=== PATIENT | female | born 1975 | race Caucasian/White ===

== ENCOUNTER 2019-05-27 05:10 | Inpatient (IN) | payer MEDICAID ==
[~2019-05-27] VITALS: Ht 165.1 cm; Wt 62.3 kg
[2019-05-27] MEDS ORDERED: LORA-268 PO (05:39)
[2019-05-27] MEDS ORDERED: mag hydrox/Alum hydrox/simeth 30ml oral suspension PO PRN (05:40)
[2019-05-27] MEDS ORDERED: morphine 2 MG/ML inj. syringe IV PRN (05:40)
[2019-05-27] MEDS ORDERED: magnesium 2GM in 50ml NS 50 ML IV PRN (05:40)
[2019-05-27] MEDS ORDERED: magnesium 4gm in 100ml NS 100 ML IV PRN ×2 (05:40→10:20)
[2019-05-27] MEDS ORDERED: potassium Cl 20 mEq SR tablet PO PRN (05:40)
[2019-05-27] MEDS ORDERED: potassium CL 10mEq/100ml bag 100 ML IV PRN (05:40)
[2019-05-27] MEDS ORDERED: HYDR-4353 PO (05:40)
[2019-05-27] MEDS ORDERED: PRED5TAB PO (05:40)
[2019-05-27] MEDS ORDERED: ondansetron/PF 4mg/2ml inj IV PRN (05:40)
[2019-05-27] MEDS ORDERED: HYDROcodone/acetaminophen 5mg/325mg tablet PO PRN (05:40)
[2019-05-27] MEDS ORDERED: magnesium hydroxide 30ml (MOM) UD suspension PO PRN (05:40)
[2019-05-27] MEDS ORDERED: magnesium Cl slow-release 64mg tablet PO PRN (05:40)
[2019-05-27] MEDS ORDERED: acetaminophen 325mg tablet PO PRN (05:40)
[2019-05-27] MEDS: normal saline 1000ml 1,000 ML IV SCH ×2 (05:53→15:11)
[2019-05-27] MEDS: morphine 2 MG/ML inj. syringe IV PRN ×2 (06:02→10:16)
--- NOTE | 2019-05-27 06:23 | NUR ---
patient received awake,NS 100ml running,call light within reach.
[2019-05-27] MEDS: K and/or MAG REPLACEMENT MC SCH (08:00)
--- NOTE | 2019-05-27 08:00 | NUR ---
0800 zosyn not in om[facility] frig. messaged pharmacy and they brought it up. hung abx
[2019-05-27] MEDS: prednisone 10mg tablet PO SCH (08:03)
[2019-05-27] MEDS: pantoprazole 40mg Tablet.DR PO SCH (08:03)
[2019-05-27] MEDS: piperacillin/tazo 3.375gm/50ml 50 ML IV SCH ×3 (08:06→23:59)
--- NOTE | 2019-05-27 08:20 | NUR ---
SPOKE WITH PT, ASKING PERMISSION TO SPEAK WITH HER PARENTS. WILL CALL PARENTS
[2019-05-27 08:30] VITALS: BP 100/60
[2019-05-27 09:35] LABS: EOSINOPHILS # (AUTO) 0.1 X10'3 (0-0.9); MEAN PLATELET VOLUME 6.5 FL (7.4-10.4); MONOCYTES # (AUTO) 1.2 X10'3 (0-0.9); MONOCYTES % (AUTO) 10.5 % (2-12)
[2019-05-27 09:37] LABS: BASOPHILS % (AUTO) 0.4 % (0-1); EOSINOPHILS % (AUTO) 0.6 % (0-6); HEMATOCRIT 23.6 % (35.0-45.0); HEMOGLOBIN 7.7 g/dl (12.0-16.0); LYMPHOCYTES # (AUTO) 1.3 X10'3 (1.1-4.8); LYMPHOCYTES % (AUTO) 11.4 % (21-51); MEAN CORPUSCULAR HEMOGLOBIN 27.5 PG (27.0-31.0); MEAN CORPUSCULAR HGB CONC 32.5 g/dL (33.0-36.5); MEAN CORPUSCULAR VOLUME 84.4 FL (78-98); NEUTROPHILS # (AUTO) 8.6 X10'3 (1.8-7.7); NEUTROPHILS % (AUTO) 77.1 % (42-75); PLATELET COUNT 773 X10'3 (140-440); RED BLOOD COUNT 2.79 X10'6 (4.20-5.60); RED CELL DISTRIBUTION WIDTH 18.3 % (11.5-14.5); WHITE BLOOD COUNT 11.1 X10'3 (4.5-11.0)
[2019-05-27 09:56] LABS: ALANINE AMINOTRANSFERASE 9 U/L (12-78); ALBUMIN/GLOBULIN RATIO 0.5 (1.1-1.5); ALKALINE PHOSPHATASE 72 IU/L (46-116); ANION GAP 10 (8-16); ASPARTATE AMINO TRANSFERASE 12 U/L (10-37); BILIRUBIN,TOTAL 0.4 MG/DL (0.1-1.0); BLOOD UREA NITROGEN 6 MG/DL (7-18); BUN/CREATININE RATIO 10.2 (6.6-38.0); CHLORIDE 105 MMOL/L (99-107); CREATININE 0.59 MG/DL (0.40-0.90); GLUCOSE 80 MG/DL (70-104); MAGNESIUM 1.3 MG/DL (1.5-2.4); POTASSIUM 3.2 MMOL/L (3.5-5.1); SODIUM 138 MMOL/L (135-145); TOTAL CARBON DIOXIDE 22.9 MMOL/L (24-32); TOTAL PROTEIN 5.8 G/DL (6.4-8.2); eGFR > 90 ML/MIN
--- NOTE | 2019-05-27 10:00 | NUR ---
PT REFUSED 2RN SKIN CHECK. I WAS ABLE TO SEE MOST OF HER SKIN DURING ASSESSMENT AND HELPING HER TOTHE BATHROOM. NO VISIBLE SKIN ISSUES
[2019-05-27 10:05] LABS: ANISOCYTOSIS 2+; PLATELET ESTIMATE INCREASED; TOTAL CELLS COUNTED 100
[2019-05-27 10:07] LABS: HYPOCHROMASIA 1+; POLYCHROMASIA 1+
[2019-05-27 11:00] VITALS: BP 113/68
[2019-05-27] MEDS: potassium CL 10mEq/100ml bag 100 ML IV PRN ×4 (12:02→19:40)
--- NOTE | 2019-05-27 12:45 | NUR ---
SPOKE WITH PARENTS OF PT. UPDATED THEM AND WILL KEEP THEM POSTED
--- NOTE | 2019-05-27 13:03 | NUR ---
PER DR GALLARDO. PT WILL NOT BE GOING TO IR FOR A DRAIN. DR CORDERO CONSULTED WITH IR AND PT WILL NEED NO SURG INTERVENTIONS. LET DR GALLARDO KNOW THAT I STARTED PROTOCOL FOR MAG AND K+ ON THIS PT
[2019-05-27 14:06] LABS: BASOPHILS % (AUTO) 0.2 % (0-1); EOSINOPHILS % (AUTO) 0 % (0-6); HEMATOCRIT 26.5 % (35.0-45.0); HEMOGLOBIN 8.7 g/dl (12.0-16.0); LYMPHOCYTES # (AUTO) 0.7 X10'3 (1.1-4.8); LYMPHOCYTES % (AUTO) 6.4 % (21-51); MEAN CORPUSCULAR HEMOGLOBIN 27.4 PG (27.0-31.0); MEAN CORPUSCULAR HGB CONC 32.6 g/dL (33.0-36.5); MEAN CORPUSCULAR VOLUME 84.1 FL (78-98); MEAN PLATELET VOLUME 6.2 FL (7.4-10.4); MONOCYTES # (AUTO) 0.4 X10'3 (0-0.9); MONOCYTES % (AUTO) 3.8 % (2-12); NEUTROPHILS % (AUTO) 89.6 % (42-75); PLATELET COUNT 805 X10'3 (140-440); RED BLOOD COUNT 3.15 X10'6 (4.20-5.60); RED CELL DISTRIBUTION WIDTH 18.3 % (11.5-14.5); WHITE BLOOD COUNT 11.1 X10'3 (4.5-11.0)
[2019-05-27] MEDS: HYDROcodone/acetaminophen 10/325mg tab PO PRN ×2 (15:15→19:39)
[2019-05-27] MEDS ORDERED: HYDROmorphone 2mg/ml vial IV PRN (17:20)
[2019-05-27] MEDS ORDERED: HYDROmorphone 1 mg/ml syringe IM PRN (17:20)
[2019-05-27] MEDS: HYDROmorphone 1 mg/ml syringe IV PRN ×2 (17:44→21:54)
--- NOTE | 2019-05-27 18:00 | NUR ---
Problems reprioritized. Patient report given, questions answered & plan of care reviewed with ANJUM CROFT.
[2019-05-27] MEDS: lactobacillus rhamnosus 10,000 MMU CELLS/CAPSULE PO SCH (19:39)
[2019-05-27 20:00] VITALS: BP 100/51
[2019-05-27] MEDS: LORazepam 0.5 MG tablet PO PRN (21:19)
[2019-05-27] MEDS: acetaminophen 325mg tablet PO PRN (23:01)
[2019-05-28] MEDS: normal saline 1000ml 1,000 ML IV SCH ×3 (01:37→20:12)
[2019-05-28] MEDS: HYDROmorphone 1 mg/ml syringe IV PRN ×3 (03:02→21:35)
[2019-05-28] MEDS: HYDROcodone/acetaminophen 10/325mg tab PO PRN (05:51)
[2019-05-28 06:00] VITALS: BP 94/59
--- NOTE | 2019-05-28 06:15 | NUR ---
Patient in room [facility]. I have received report from LANG Persaud and had the opportunity to ask questions and assume patient care.
--- NOTE | 2019-05-28 06:59 | NUR ---
Problems reprioritized. Patient report given, questions answered & plan of care reviewed with Nancie CROFT.
[2019-05-28 07:00] LABS: BASOPHILS % (AUTO) 0.4 % (0-1); EOSINOPHILS # (AUTO) 0.1 X10'3 (0-0.9); MEAN CORPUSCULAR HGB CONC 32.8 g/dL (33.0-36.5); MEAN CORPUSCULAR VOLUME 84.7 FL (78-98); MEAN PLATELET VOLUME 6.4 FL (7.4-10.4); NEUTROPHILS # (AUTO) 6.9 X10'3 (1.8-7.7)
[2019-05-28 07:02] LABS: EOSINOPHILS % (AUTO) 1.1 % (0-6); HEMATOCRIT 24.8 % (35.0-45.0); HEMOGLOBIN 8.1 g/dl (12.0-16.0); LYMPHOCYTES # (AUTO) 1.3 X10'3 (1.1-4.8); LYMPHOCYTES % (AUTO) 13.6 % (21-51); MEAN CORPUSCULAR HEMOGLOBIN 27.8 PG (27.0-31.0); MONOCYTES # (AUTO) 0.9 X10'3 (0-0.9); MONOCYTES % (AUTO) 9.9 % (2-12); PLATELET COUNT 779 X10'3 (140-440); RED BLOOD COUNT 2.92 X10'6 (4.20-5.60); RED CELL DISTRIBUTION WIDTH 17.9 % (11.5-14.5); WHITE BLOOD COUNT 9.2 X10'3 (4.5-11.0)
[2019-05-28 07:12] LABS: ALANINE AMINOTRANSFERASE 7 U/L (12-78); ALBUMIN 1.8 G/DL (3.4-5.0); ALBUMIN/GLOBULIN RATIO 0.5 (1.1-1.5); ALKALINE PHOSPHATASE 74 IU/L (46-116); ANION GAP 7 (8-16); ASPARTATE AMINO TRANSFERASE 16 U/L (10-37); BILIRUBIN,TOTAL 0.2 MG/DL (0.1-1.0); BLOOD UREA NITROGEN 4 MG/DL (7-18); BUN/CREATININE RATIO 7.3 (6.6-38.0); CALCIUM 7.7 MG/DL (8.5-10.1); CHLORIDE 108 MMOL/L (99-107); CREATININE 0.55 MG/DL (0.40-0.90); GLUCOSE 99 MG/DL (70-104); MAGNESIUM 1.7 MG/DL (1.5-2.4); POTASSIUM 3.6 MMOL/L (3.5-5.1); SODIUM 141 MMOL/L (135-145); TOTAL PROTEIN 5.7 G/DL (6.4-8.2); eGFR > 90 ML/MIN
[2019-05-28] MEDS: prednisone 10mg tablet PO SCH (07:31)
[2019-05-28] MEDS: pantoprazole 40mg Tablet.DR PO SCH (07:31)
[2019-05-28] MEDS: lactobacillus rhamnosus 10,000 MMU CELLS/CAPSULE PO SCH ×2 (07:31→19:51)
[2019-05-28] MEDS: piperacillin/tazo 3.375gm/50ml 50 ML IV SCH ×3 (07:32→23:56)
[2019-05-28] MEDS: K and/or MAG REPLACEMENT MC SCH (08:00)
--- NOTE | 2019-05-28 09:49 | NUR ---
Patient left the surgical floor to have ordered chest xray completed. Patient left in a w/c in stable condition.
--- NOTE | 2019-05-28 09:58 | NUR ---
Patient arrived back to surgical floor by w/c. She was brought back by radiology staff. Patient is stable and back in bed.
[2019-05-28] MEDS: oxyCODONE IR 5mg (immed. release) tablet PO PRN ×4 (10:27→22:56)
[2019-05-28 11:00] VITALS: BP 107/63
--- NOTE | 2019-05-28 11:12 | NUR ---
Patient's parents called to get updated on patient. Patient gave verbal OK to speak with them. They requested to speak with Dr. Garcia. I gave Dr. Garcia this message and their number: Nehemiah Erika Vasquez [phone]
[2019-05-28] MEDS: LORazepam 0.5 MG tablet PO PRN (13:29)
--- NOTE | 2019-05-28 16:12 | NUR ---
Dr. May rounded on the patient this afternoon and he spoke to patient about the length of time she will be here due to the need for IV antibiotics vs. oral antibiotics. Patient will need the antibiotics given IV because orals are not strong enough to take care of the infection.
--- NOTE | 2019-05-28 16:28 | NUR ---
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 S/p recent sigmoid colectomy w/ colostomy placement 2 weeks ago at [facility] per MD note. Conservative management since hepatic fluid to high risk to drain per surgeon note. BMx1 documented today in EMR; no volume noted. Advanced to regular diet PO 100% first clear liquid meal as well as first 2 regular meals. Most recent lunch today PO decreased to 0-25% food. ASHOK d/w RN regarding scaled wt since pt has no wt in EMR. RD called [facility] and d/w [facility] house worker who reports pt admit 05/02 68kg and had reported 20 pound wt loss at that time and 05/20 was also 68kg. Pt has mild weakness, no edema; and given pending scaled wt this admit will need additional malnutrition criteria to further evaluate malnutrition status. Will monitor for new scaled wt and additional PO hx on f/u tomorrow. Addendum: 05/28/19 at [address] Amended: Links added.
[2019-05-28] MEDS ORDERED: temazepam 15mg capsule PO PRN (17:25)
--- NOTE | 2019-05-28 18:27 | NUR ---
Problems reprioritized. Patient report given, questions answered & plan of care reviewed with Rachel Barnhart RN.
[2019-05-28 18:40] VITALS: BP 109/69
[2019-05-28] MEDS ORDERED: HYDROmorphone inj. 0.5 MG/0.5 ML DISP.SYRIN IV PRN (21:45)
[2019-05-29 00:11] VITALS: BP 107/63
[2019-05-29] MEDS: HYDROmorphone 1 mg/ml syringe IV PRN ×4 (01:58→22:41)
[2019-05-29] MEDS: oxyCODONE IR 5mg (immed. release) tablet PO PRN ×2 (03:59→20:46)
[2019-05-29 05:50] LABS: BASOPHILS % (AUTO) 0.4 % (0-1); EOSINOPHILS # (AUTO) 0.1 X10'3 (0-0.9); HEMATOCRIT 26.3 % (35.0-45.0); LYMPHOCYTES # (AUTO) 1.4 X10'3 (1.1-4.8); MONOCYTES # (AUTO) 0.8 X10'3 (0-0.9); RED CELL DISTRIBUTION WIDTH 17.9 % (11.5-14.5)
[2019-05-29 05:52] LABS: EOSINOPHILS % (AUTO) 0.7 % (0-6); HEMOGLOBIN 8.7 g/dl (12.0-16.0); LYMPHOCYTES % (AUTO) 15.1 % (21-51); MEAN CORPUSCULAR HGB CONC 33.2 g/dL (33.0-36.5); MEAN CORPUSCULAR VOLUME 84.4 FL (78-98); MEAN PLATELET VOLUME 6.5 FL (7.4-10.4); MONOCYTES % (AUTO) 8.6 % (2-12); NEUTROPHILS % (AUTO) 75.2 % (42-75); PLATELET COUNT 737 X10'3 (140-440); RED BLOOD COUNT 3.11 X10'6 (4.20-5.60); WHITE BLOOD COUNT 9.4 X10'3 (4.5-11.0)
[2019-05-29 06:23] LABS: ALBUMIN 1.7 G/DL (3.4-5.0); ALBUMIN/GLOBULIN RATIO 0.5 (1.1-1.5); ALKALINE PHOSPHATASE 64 IU/L (46-116); ANION GAP 9 (8-16); ASPARTATE AMINO TRANSFERASE 4 U/L (10-37); BILIRUBIN,TOTAL 0.3 MG/DL (0.1-1.0); BLOOD UREA NITROGEN 2 MG/DL (7-18); BUN/CREATININE RATIO 3.5 (6.6-38.0); CALCIUM 7.3 MG/DL (8.5-10.1); CHLORIDE 108 MMOL/L (99-107); CREATININE 0.57 MG/DL (0.40-0.90); GLUCOSE 104 MG/DL (70-104); MAGNESIUM 1.3 MG/DL (1.5-2.4); SODIUM 142 MMOL/L (135-145); TOTAL CARBON DIOXIDE 24.6 MMOL/L (24-32); TOTAL PROTEIN 5.4 G/DL (6.4-8.2); eGFR > 90 ML/MIN
[2019-05-29 06:25] LABS: POTASSIUM 2.8 MMOL/L (3.5-5.1)
[2019-05-29 06:39] LABS: ALANINE AMINOTRANSFERASE 6 U/L (12-78)
[2019-05-29] MEDS: pantoprazole 40mg Tablet.DR PO SCH (06:56)
[2019-05-29] MEDS: potassium Cl 20 mEq SR tablet PO PRN ×3 (06:56→17:13)
--- NOTE | 2019-05-29 07:15 | NUR ---
Problems reprioritized. Patient report given, questions answered & plan of care reviewed with BENTON. Addendum: 05/29/19 at 0716 by Nigel Rivas RN Amended: Links added.
[2019-05-29 07:29] VITALS: BP 114/67
[2019-05-29] MEDS: prednisone 10mg tablet PO SCH (07:36)
[2019-05-29] MEDS: lactobacillus rhamnosus 10,000 MMU CELLS/CAPSULE PO SCH ×2 (07:36→20:47)
[2019-05-29] MEDS: magnesium Cl slow-release 64mg tablet PO PRN (07:36)
[2019-05-29] MEDS: normal saline 1000ml 1,000 ML IV SCH ×3 (07:37→22:38)
[2019-05-29] MEDS: piperacillin/tazo 3.375gm/50ml 50 ML IV SCH (07:42)
[2019-05-29] MEDS: K and/or MAG REPLACEMENT MC SCH (08:02)
[2019-05-29] MEDS ORDERED: HYDROmorphone 1 mg/ml syringe IM ONE (08:30)
--- NOTE | 2019-05-29 09:28 | NUR ---
Dr May notified of increasing back pain that is not responding to extra dose of dilaudid ordered by Dr Garcia. Pt c/o pain starting in color coater in mid back that started early this morning. Dr Hall wanted to know white count, which is fine and bp is stable, HR stable, 02 stable. No signs of sepsis, so he wants her to get out of bed, walk and try torodol. New orders in, will continue to monitor closely.
[2019-05-29] MEDS: ketorolac trometh. 30mg/ml inj. IV PRN ×3 (10:01→23:25)
--- NOTE | 2019-05-29 10:44 | NUR ---
0830 one time dilaudid meant to be ordered IV not IM, med given IV, not IM.
[2019-05-29 11:00] VITALS: BP 114/67
--- NOTE | 2019-05-29 12:37 | NUR ---
Patient says she is feeling better, not tearful. Talked to Dr Felton about plan home. She will go home on oral abx when ready.
[2019-05-29] MEDS: diazepam 2mg tablet PO PRN ×2 (13:41→23:32)
[2019-05-29] MEDS ORDERED: ketorolac trometh. 30mg/ml inj. IV SCH (14:00)
--- NOTE | 2019-05-29 15:03 | NUR ---
F/u: Pt advanced to low residue diet refusing breakfast this AM. Pt previously on low fat diet receiving high fiber options like salad which she refused since follows low fiber diet at home for Chron's. Pt seen by ASHOK and is agreeable to chocolate ensure pudding TIDWM; dietary notified. Pt reports wt loss since January 155 pounds and usually loses wt fast during Crohn's flare-ups but never gets below 130 pounds. Currently 137 pounds standing scale and pt reports she is 'still healthy wt for her ht currently'. Prior wt 05/20 per [facility] 68kg bed scale vs 62.3kg standing scale this admit. Likely some wt loss past week though exact unknown given scaled differences. Pt does not appear to have visible muscle/fat wasting and is well-developed/well-nourished appearing per MD note. Pt does not meet minimum malnutrition criteria at this time. Will monitor for low-residue diet and ensure pudding PO tolerance. Addendum: 05/29/19 at [address] Amended: Links added.
[2019-05-29] MEDS: amox tr/potassium clavulanate 875/125mg TAB PO SCH (17:13)
--- NOTE | 2019-05-29 18:19 | NUR ---
Problems reprioritized. Patient report given, questions answered & plan of care reviewed with Obey CROFT.
[2019-05-29 21:12] VITALS: BP 111/61
[2019-05-30] VITALS: BP 123/67
[2019-05-30] MEDS: oxyCODONE IR 5mg (immed. release) tablet PO PRN (05:14)
[2019-05-30] MEDS: ketorolac trometh. 30mg/ml inj. IV PRN ×2 (05:38→12:58)
[2019-05-30 05:43] LABS: EOSINOPHILS # (AUTO) 0.1 X10'3 (0-0.9); NEUTROPHILS # (AUTO) 4.9 X10'3 (1.8-7.7)
[2019-05-30 05:47] LABS: BASOPHILS % (AUTO) 0.6 % (0-1); EOSINOPHILS % (AUTO) 1.1 % (0-6); HEMATOCRIT 23.8 % (35.0-45.0); HEMOGLOBIN 7.8 g/dl (12.0-16.0); LYMPHOCYTES # (AUTO) 1.3 X10'3 (1.1-4.8); LYMPHOCYTES % (AUTO) 18.7 % (21-51); MEAN CORPUSCULAR HEMOGLOBIN 27.7 PG (27.0-31.0); MEAN CORPUSCULAR HGB CONC 32.8 g/dL (33.0-36.5); MEAN CORPUSCULAR VOLUME 84.3 FL (78-98); MEAN PLATELET VOLUME 6.4 FL (7.4-10.4); MONOCYTES # (AUTO) 0.8 X10'3 (0-0.9); MONOCYTES % (AUTO) 11.1 % (2-12); NEUTROPHILS % (AUTO) 68.5 % (42-75); PLATELET COUNT 641 X10'3 (140-440); RED BLOOD COUNT 2.83 X10'6 (4.20-5.60); RED CELL DISTRIBUTION WIDTH 18.3 % (11.5-14.5); WHITE BLOOD COUNT 7.1 X10'3 (4.5-11.0)
[2019-05-30 06:02] LABS: ALANINE AMINOTRANSFERASE 9 U/L (12-78); ALBUMIN 1.9 G/DL (3.4-5.0); ALBUMIN/GLOBULIN RATIO 0.5 (1.1-1.5); ALKALINE PHOSPHATASE 67 IU/L (46-116); ANION GAP 8 (8-16); ASPARTATE AMINO TRANSFERASE 15 U/L (10-37); BILIRUBIN,TOTAL 0.2 MG/DL (0.1-1.0); BLOOD UREA NITROGEN 2 MG/DL (7-18); BUN/CREATININE RATIO 4.1 (6.6-38.0); CALCIUM 8.5 MG/DL (8.5-10.1); CHLORIDE 109 MMOL/L (99-107); CREATININE 0.49 MG/DL (0.40-0.90); GLUCOSE 104 MG/DL (70-104); MAGNESIUM 1.4 MG/DL (1.5-2.4); POTASSIUM 3.7 MMOL/L (3.5-5.1); SODIUM 141 MMOL/L (135-145); TOTAL CARBON DIOXIDE 24.3 MMOL/L (24-32); TOTAL PROTEIN 5.8 G/DL (6.4-8.2); eGFR > 90 ML/MIN
--- NOTE | 2019-05-30 06:27 | NUR ---
Patient in room [facility]. I have received report from LANG Hudson and had the opportunity to ask questions and assume patient care.
--- NOTE | 2019-05-30 06:28 | NUR ---
Problems reprioritized. Patient report given, questions answered & plan of care reviewed with GEOVANNA. Addendum: 05/30/19 at 0629 by Nigel Rivas RN Amended: Links added.
--- NOTE | 2019-05-30 06:29 | NUR ---
Problems reprioritized. Patient report given, questions answered & plan of care reviewed with GEOVANNA. Addendum: 05/30/19 at 0630 by Nigel Rivas RN Amended: Links added.
--- NOTE | 2019-05-30 06:35 | NUR ---
Patient in room [facility]. I have received report from LANG ALEJANDRE and had the opportunity to ask questions and assume patient care.
[2019-05-30 08:00] VITALS: BP 113/60
[2019-05-30] MEDS: K and/or MAG REPLACEMENT MC SCH (08:00)
[2019-05-30] MEDS ORDERED: sulfamethoxazole/trimethoprim DS (800/160mg) tablet PO SCH (08:00)
[2019-05-30] MEDS: magnesium Cl slow-release 64mg tablet PO PRN (08:39)
[2019-05-30] MEDS: prednisone 10mg tablet PO SCH (08:39)
[2019-05-30] MEDS: amox tr/potassium clavulanate 875/125mg TAB PO SCH (08:40)
[2019-05-30] MEDS: lactobacillus rhamnosus 10,000 MMU CELLS/CAPSULE PO SCH (08:40)
[2019-05-30] MEDS: pantoprazole 40mg Tablet.DR PO SCH (08:40)
[2019-05-30] MEDS: HYDROmorphone 1 mg/ml syringe IV PRN (08:41)
[2019-05-30] MEDS: normal saline 1000ml 1,000 ML IV SCH (08:42)
[2019-05-30] MEDS: acetaminophen 325mg tablet PO PRN (10:43)
[2019-05-30 11:00] VITALS: BP 117/68
[2019-05-30] MEDS ORDERED: PANT40TA4 PO (12:11)
[2019-05-30] MEDS ORDERED: MAGN64TA10 PO (12:11)
[2019-05-30] MEDS ORDERED: POTA20TA19 PO (12:11)
[2019-05-30] MEDS ORDERED: AMOX-580 PO (12:11)
[2019-05-30] MEDS ORDERED: OXYC10TA47 PO ×2 (12:11→12:16)
[2019-05-30] MEDS ORDERED: DIAZ2TAB3 PO ×2 (12:11→12:16)
[2019-05-30] MEDS ORDERED: BACDS PO (13:27)
--- NOTE | 2019-05-30 14:24 | NUR ---
Patient has received instructions regarding medications, follow up medical care, and information regarding her hospital stay, patient has verbalized understanding of teachings.
--- NOTE | 2019-05-30 16:06 | NUR ---
Wound consult: Pt d/c today but endorsed knowledge of needing high protein for healing on RD visit yesterday 05/29; receiving chocolate ensure pudding in addition to 50% avg first few meals prior to d/c. Addendum: 05/30/19 at [address] Amended: Links added.
== END 2019-05-30 15:20 | disposition home or self-care (01) | DRG 383 ==
LOC: ER 05:11 → ED HOLD 05:37 → SUR 3N 07:00
PROVIDERS: ADMIT Hospitalist; ATTEND Family Medicine
DX: L02.211 Cutaneous abscess of abdominal wall (principal); K63.2 Fistula of intestine; K65.9 Peritonitis, unspecified; K50.90 Crohn's disease, unspecified, without complications; E83.42 Hypomagnesemia; D64.9 Anemia, unspecified; E87.6 Hypokalemia; F12.90 Cannabis use, unspecified, uncomplicated; R00.0 Tachycardia, unspecified; Z93.3 Colostomy status; Z90.49 Acquired absence of other specified parts of digestive tract; Z79.899 Other long term (current) drug therapy
CPT/HCPCS: 36415; 71046; 80053; 83735; 84132; 85025; 86885; 86900; 86901; 87040; 87081; 96374; 96375; 99285; G0378; J1170; J1885; J2270; J2405; J2543; J3475; J3480; J7030; J7512